=== PATIENT | female | born 1975 | race Caucasian/White ===

== ENCOUNTER → 2018-07-01 | Outpatient (CLI) | payer MEDICAID ==
[2018-07-01 10:43] LABS: HCT 43.5 % (34.0-46.0); HGB 14.4 gm/dL (11.4-16.0); MCH 30.4 pg (25.0-35.0); MCHC 33.2 g/dL (31.0-37.0); MCV 91.5 fL (80.0-100.0); Mean Platelet Volume 7.2; Platelet Count 315 k/uL (150-450); RBC 4.76 m/uL (3.80-5.40); RDW 12.3 % (11.5-15.5)
[2018-07-01 17:39] LABS: Anion Gap 5.8 mmol/L (4.00-12.00); Calcium 9.2 mg/dL (8.7-10.3); Carbon Dioxide 26.2 mmol/L (21.6-31.8)
[2018-07-01 19:09] LABS: Hemoglobin A1C 4.9 % (4.0-6.0)
== END | disposition home or self-care (01) ==
LOC: LABWHC1 10:21
PROVIDERS: ATTEND Family Medicine
DX: K52.89 Other specified noninfective gastroenteritis and colitis (principal); E66.9 Obesity, unspecified
CPT/HCPCS: 36415; 80048; 83036; 84439; 84443; 84450; 84460; 85027

== ENCOUNTER → 2018-12-11 | Outpatient (CLI) | payer MEDICAID ==
--- NOTE | 2018-12-11 14:48 | MM ---
Reason for exam: additional evaluation requested from abnormal screening. Last mammogram was performed 3 years ago. History: Benign MG stereo VAD BX RT of the right breast, June 09, 2015. Reductions of both breasts, 2010. Physical Findings: Nurse Summary: 1cm nodule in the left breast at 2 o'clock (nurse gavi). MG 3D Diag Mammo W/Cad DEB Bilateral CC and MLO view(s) were taken. Prior study comparison: December 15, 2015, right breast MG 3d diag mammo w/cad RT. June 02, 2015, bilateral MG 3d screening mammo w/cad. The breast tissue is heterogeneously dense. This may lower the sensitivity of mammography. Stable benign calcifications. There is no discrete abnormality. These results were verbally communicated with the patient and result sheet given to the patient on 12/11/18. ASSESSMENT: Incomplete: need additional imaging evaluation, BI-RAD 0 RECOMMENDATION: Ultrasound of the left breast. Manage patient on a clinical basis.
--- NOTE | 2018-12-11 14:49 | USB ---
Reason for exam: additional evaluation requested from abnormal screening. History: Benign MG stereo VAD BX RT of the right breast, June 09, 2015. Reductions of both breasts, 2010. US Breast Limited LT Left limited breast ultrasound including focal area of concern, retroareolar and axilla demonstrates a 5 x 3 x 6mm oval, cystic lesion at 2 o'clock and a 8 x 5 x 6mm lobular, cystic lesion at 3 o'clock. These results were verbally communicated with the patient and result sheet given to the patient on 12/11/18. ASSESSMENT: Benign, BI-RAD 2 RECOMMENDATION: Routine screening mammogram of both breasts in 1 year. Manage patient on a clinical basis.
== END | disposition home or self-care (01) ==
LOC: RADMAMWWP 13:33
PROVIDERS: ATTEND Obstetrics & Gynecology
DX: R92.8 Other abnormal and inconclusive findings on diagnostic imaging of breast (principal)
CPT/HCPCS: 77062; 77066

== ENCOUNTER → 2020-06-03 | Outpatient (CLI) | payer MEDICAID ==
--- NOTE | 2020-06-07 14:11 | MM ---
Reason for exam: screening (asymptomatic). Last mammogram was performed 1 year and 6 months ago. History: Benign MG stereo VAD BX RT of the right breast, June 09, 2015. Reductions of both breasts, 2010. Physical Findings: A clinical breast exam by your physician is recommended on an annual basis and results should be correlated with mammographic findings. MG 3D Screening Mammo W/Cad Bilateral CC and MLO view(s) were taken. Prior study comparison: December 11, 2018, bilateral MG 3d diag mammo w/cad DEB. December 15, 2015, right breast MG 3d diag mammo w/cad RT. The breast tissue is heterogeneously dense. This may lower the sensitivity of mammography. Previous mammotome biopsy in the right breast with adjacent fat necrosis calcifications. There is chronic nodularity in the left breast laterally. No significant changes when compared with prior studies. ASSESSMENT: Benign, BI-RAD 2 RECOMMENDATION: Routine screening mammogram of both breasts in 1 year.
== END | disposition home or self-care (01) ==
LOC: RADMAMWWP 15:04
PROVIDERS: ATTEND Obstetrics & Gynecology
DX: Z12.31 Encounter for screening mammogram for malignant neoplasm of breast (principal)
CPT/HCPCS: 77063; 77067

== ENCOUNTER → 2020-08-20 | Outpatient (CLI) | payer MEDICAID ==
--- NOTE | 2020-08-20 10:43 | XR ---
EXAMINATION TYPE: XR finger LT DATE OF EXAM: 08/20/2020 COMPARISON: NONE HISTORY: Pain TECHNIQUE: Three views are submitted. FINDINGS: The osseous structures are intact. The joint spaces are preserved and there is no acute fracture or dislocation. IMPRESSION: 1. No definite acute fracture or dislocation if symptoms persist, follow-up study in 7 to 10 days wo uld be suggested
== END | disposition home or self-care (01) ==
LOC: RADXRMAIN 10:18
PROVIDERS: ATTEND Family Medicine
DX: S63.639A Sprain of interphalangeal joint of unspecified finger, initial encounter (principal)

== ENCOUNTER → 2021-04-19 | Outpatient (CLI) | payer MEDICAID | END | disposition home or self-care (01) | LOC: LABPAT 07:54 | PROVIDERS: ATTEND Surgery Plastic and Reconstructive Surgery | DX: Z01.812 Encounter for preprocedural laboratory examination (principal); Z20.822 Contact with and (suspected) exposure to COVID-19 | CPT/HCPCS: 87635 ==

== ENCOUNTER → 2024-05-07 | Outpatient (CLI) | payer BC ==
[2024-05-08 02:21] LABS: Basophils # (A) 0.07 X 10*3/uL (0.00-0.10); Basophils % (A) 0.9 %; Eosinophils # (A) 0.27 X 10*3/uL (0.04-0.35); Eosinophils % (A) 3.5 %; HCT 44.2 % (37.2-46.3); HGB 14.8 g/dL (12.0-15.0); Lymphocytes # (A) 2.54 X 10*3/uL (0.90-5.00); Lymphocytes % (A) 32.6 %; MCH 31.4 pg (27.0-32.0); MCHC 33.5 g/dL (32.0-37.0); MCV 93.6 FL (80.0-97.0); Mean Platelet Volume 11.1 FL (9.5-12.2); Monocytes # (A) 0.51 X 10*3/uL (0.20-1.00); Monocytes % (A) 6.5 %; NRBC Per 100 WBC 0 X 10*3/uL (0.00-0.01); Neutrophils # (A) 4.38 X 10*3/uL (1.80-7.70); Neutrophils % (A) 56.2 %; Platelet Count 300 X 10*3/uL (140-440); RBC 4.72 X 10*6/uL (4.10-5.20); RDW 12.1 % (11.5-14.5); WBC 7.79 X 10*3/uL (4.50-10.00)
[2024-05-08 03:03] LABS: ALT 27 U/L (8-44); AST 19 U/L (13-35); Albumin 4.4 g/dL (3.8-4.9); Albumin/Globulin Ratio 1.69 Ratio (1.60-3.17); Alkaline Phosphatase 80 U/L (41-126); Blood Urea Nitrogen 10.5 mg/dL (9.0-27.0); Calcium 9.5 mg/dL (8.7-10.3); Chloride 104 mmol/L (96-109); Globulin 2.6 g/dL (1.6-3.3); Glucose 81 mg/dL (70-110); Potassium 4.5 mmol/L (3.5-5.5); Sodium 139 mmol/L (135-145); Total Bilirubin 0.4 mg/dL (0.3-1.2)
[2024-05-08 04:19] LABS: Appearance,Urine Clear (Clear); Bilirubin,Urine Negative (Negative); Blood,Urine Negative (Negative); Color,Urine Yellow (Yellow); Ketones,Urine Negative (Negative); Nitrite,Urine Negative (Negative); PH, Urine 5.5; Specific Gravity,Urine 1.015 (1.001-1.030); Urobilinogen,Urine 0.2 E.U./DL
[2024-05-08 04:30] LABS: Bacteria,Urine 1+ (None Seen)
== END ==
LOC: LABPAT 15:51
PROVIDERS: ATTEND Urology
DX: Z01.818 Encounter for other preprocedural examination (principal)
CPT/HCPCS: 80053; 81001; 85025; 86850; 86900; 86901; 87086

== ENCOUNTER 2024-05-14 05:51 | Day surgery (SDC) | payer BC, MEDICAID ==
--- NOTE | 2024-05-13 10:48 | P.GSHP ---
History of Present Illness H&P Date: 05/13/24 49 yo female with susannah and a cystocele who has failed conservative management. SHe comes for a tot and cystocele repair by Dr Matthews and myself. the risks and complications including the mesh controversy have been explained understood and accepted. - Constitutional Constitutional: Denies chills, Denies fever - EENT Eyes: denies blurred vision, denies pain Ears, nose, mouth and throat: Denies headache, Denies sore throat - Cardiovascular Cardiovascular: Denies chest pain, Denies shortness of breath - Respiratory Respiratory: Denies cough, Denies 7 - Gastrointestinal Gastrointestinal: Denies abdominal pain, Denies diarrhea, Denies nausea, Denies vomiting - Genitourinary (Female) Genitourinary: Denies dysuria, Denies hematuria - Genitourinary (Male) Genitourinary: Denies dysuria, Denies hematuria - Musculoskeletal Musculoskeletal: Denies myalgias - Integumentary Integumentary: Denies pruritus, Denies rash - Neurological Neurological: Denies numbness, Denies weakness - Psychiatric Psychiatric: Denies anxiety, Denies depression - Endocrine Endocrine: Denies fatigue, Denies weight change Past Medical History Additional Past Medical History / Comment(s): urinary incontinence History of Any Multi-Drug Resistant Organisms: None Reported Past Surgical History: Cholecystectomy Past Anesthesia/Blood Transfusion Reactions: No Reported Reaction Additional Past Anesthesia/Blood Transfusion Reaction / Comment(s): pt. adopted Smoking Status: Never smoker Medications and Allergies Home Medications Medication Instructions Recorded Confirmed Type ALPRAZolam [Xanax] 0.5 mg PO DAILY PRN 05/09/24 05/09/24 History Cholestyramine/Aspartame [Questran 0.5 scoop PO DAILY 05/09/24 05/09/24 History Light Powder] Tirzepatide [Zepbound] 7.5 mg SQ MORALES 05/09/24 05/09/24 History Allergies Allergy/AdvReac Type Severity Reaction Status Date / Time No Known Allergies Allergy Verified 12/11/18 14:06 Surgical - Exam - General well developed, well nourished, no distress - Eyes normal ocular movement, no icteric - ENT no hearing loss, no congestion - Neck no masses, trachea midline - Respiratory normal respiratory effort, clear to auscultation - Abdomen Abdomen: soft, non tender, no guarding, no rigid, no rebound - Genitourinary grade 3 cystocele and a hypermobile urethra and susannah - Integumentary no rash, no abnormal pigmentation - Neurologic no disoriented, no combative - Psychiatric oriented to time, oriented to person, oriented to place, speech is normal, memory intact Assessment and Plan Assessment: Impression Susannah and cystocele. Plan: tot with cystoscopy and cystocele repair.
[~2024-05-14 05:51] MED LIST: AMPICILLIN 1,000 MG in SODIUM CHLORIDE 0.9% 50 ML IVPB PRN; GENTAMICIN 110 MG in SODIUM CHLORIDE 0.9% 100 ML IVPB PRN
[2024-05-14] MEDS: ONDANSETRON 4 MG/2 ML VIAL IVP ONE (06:48)
[2024-05-14] MEDS: IV FLUID CONTINUATION 1,000 ML IV ONE (06:48)
[2024-05-14] MEDS: LACTATED RINGERS 1,000 ML IV SCH (06:48)
[2024-05-14] MEDS: DEXAMETHASONE SOD PHOSPHATE 4 MG/ML 1 ML VIAL IV ONE (06:50)
[2024-05-14] MEDS: MIDAZOLAM 2 MG/2 ML VIAL IV ONE (06:58)
[2024-05-14] MEDS ORDERED: PROPOFOL 10 MG/ML 20 ML VIAL IV ONE (07:58)
[2024-05-14] MEDS ORDERED: fentaNYL (PF) 50 MCG/ML 2 ML AMP ONE (07:58)
[2024-05-14] MEDS ORDERED: SUCCINYLCHOLINE CHLORIDE 200 MG/10 ML VIAL IV ONE (07:58)
[2024-05-14] MEDS ORDERED: MIDAZOLAM 2 MG/2 ML VIAL ONE (07:58)
[2024-05-14] MEDS ORDERED: LIDOCAINE 1% INJ 10MG/ML (20 ML MDV) ONE (07:58)
[2024-05-14] MEDS: VASOPRESSIN 20 UNIT/ML 1 ML VIAL SQ ONE (08:44)
[2024-05-14] MEDS: GENTAMICIN 80 MG in SODIUM CHLORIDE 0.9% 500 ML 500 ML IRRIGATION ONE (08:50)
[2024-05-14] MEDS ORDERED: ALPRAZolam 0.5 MG TAB PO PRN (09:00)
--- NOTE | 2024-05-14 09:07 | P.HPOB ---
History of Present Illness H&P Date: 05/14/24 Chief Complaint: Stress urinary incontinence The patient is a 49-year-old multiparous patient who presented to Dr. Forrester with complaints of stress urinary incontinence. His evaluation confirmed that finding and the indication for Monarc suburethral sling. During his evaluation he discovered a cystocele which was larger than he felt comfortable repairing on his own and referred her to me for evaluation and comanagement of the surgery. She was found to have a grade 2+ cystocele present. As a result, we are planning Co. surgeries with anterior colporrhaphy followed by Dr. Aaron performing a Monarc suburethral sling. Obstetrical history: Multiparous patient with normal vaginal deliveries. Gynecologic history: Unremarkable with no history of any infections. Review of Systems Review of systems is confined to history of present illness. Past Medical History Additional Past Medical History / Comment(s): urinary incontinence History of Any Multi-Drug Resistant Organisms: None Reported Past Surgical History: Cholecystectomy Past Anesthesia/Blood Transfusion Reactions: No Reported Reaction Additional Past Anesthesia/Blood Transfusion Reaction / Comment(s): pt. adopted Smoking Status: Never smoker Medications and Allergies Home Medications Medication Instructions Recorded Confirmed Type ALPRAZolam [Xanax] 0.5 mg PO DAILY PRN 05/09/24 05/14/24 History Cholestyramine/Aspartame [Questran 0.5 scoop PO DAILY 05/09/24 05/14/24 History Light Powder] Tirzepatide [Zepbound] 7.5 mg SQ MORALES 05/09/24 05/14/24 History Allergies Allergy/AdvReac Type Severity Reaction Status Date / Time No Known Allergies Allergy Verified 05/14/24 06:22 Exam Vital Signs Temp Pulse Resp BP Pulse Ox 05/14/24 07:05 80 16 113/68 97 05/14/24 06:34 97.9 F 77 18 108/70 98 Intake and Output 05/13/24 05/14/24 05/14/24 22:59 06:59 14:59 Intake Total 100 401 Output Total 10 Balance 100 391 Intake: IV 100 401 Output: Estimated Blood Loss 10 Other: Weight 92.4 kg In general, this is a well-developed, well-nourished white female in no acute distress. Her heart has a regular rhythm and rate without murmur. Her lungs clear to auscultation bilaterally in all marks. Her abdomen is nondistended, has normal active bowel sounds, soft, nontender, and without any palpable masses. Her extremities are without any cyanosis, clubbing, or edema and are nontender to palpation bilaterally. Pelvic examination demonstrates normal external genitalia and BUS with normal vaginal mucosa and cervix. There is a grade 2+ cystocele present. The uterus is approximately 4 to 5 weeks in size, midplane, mobile, nontender, normal shape. The adnexa are normal and nontender without mass bilaterally. Assessment and Plan (1) KANA (stress urinary incontinence, female) Current Visit: Yes Status: Acute Code(s): N39.3 - STRESS INCONTINENCE (FEMALE) (MALE) SNOMED Code(s): 96520418 (2) Cystocele Current Visit: Yes Status: Acute Code(s): GQH5478 - SNOMED Code(s): 576214333 Plan: The patient has been brought to the operating room for anterior colporrhaphy and Monarc suburethral sling. The risks and complications of each procedure have been independently discussed by myself and Dr. Forrester. The patient has understood and agreed to proceed.
--- NOTE | 2024-05-14 09:07 | P.OP ---
Date of Procedure: 05/14/24 Preoperative Diagnosis: cystocele, stress urinary incontinence Postoperative Diagnosis: same Procedure(s) Performed: anterior repair, trans-obturator tape, cystoscopy Anesthesia: DUSTY Surgeon: Xiang Forrester Estimated Blood Loss (ml): 50 Pathology: none sent Condition: stable Disposition: PACU Indications for Procedure: the patient is 49. She has a grade 3 cystocele and stress urinary incontinence. She comes for an anterior repair by Dr. Matthews, and a bladder neck suspensi on (trans-obturator tape) myself. Description of Procedure: patient brought to the operating suite. Given a general anesthetic. Placed lithotomy position with a sterile prep and drape. Dr. Matthews proceeds with thecystocele repair. After this is done I entered the procedure. Make 2 incisions in the inguinal crease at the level clitoris. I passed the trans-obturator tape introducers through the incisions around the issue pubic ramus into the vaginal space bilaterally. The urine remains clear. Cystoscopy proved that there is no evidence of introducer and the bladder. I then attached the trans-obturator grafted introducers and pull it back such that it sits in the mid urethra nicely.I then removed the redundant sheathing. I closed the vaginal space with a running 2-0 Vicryl. I excised redundant graft at the inguinal incisions and closed with 4-0 Monocryl. A vaginal pack is place. Blood loss for my portion of the procedure is about 25 mL. The patient tolerated procedure well. The urine remains clear. She is awakened and returned recovery room in good condition.
--- NOTE | 2024-05-14 09:11 | P.OP ---
Date of Procedure: 05/14/24 Preoperative Diagnosis: #1. Stress urinary incontinence #2. Grade 2+ cystocele, incidental Postoperative Diagnosis: Same Procedure(s) Performed: #1. Anterior colporrhaphy #2. Monarc suburethral sling (Mitzy) Anesthesia: DUSTY Surgeon: Arthur Matthews Ecommerce Marketing Manager #1: Xiang Forrester Estimated Blood Loss (ml): 20 Pathology: none sent Condition: stable Disposition: other (Remains in OR for the second portion of procedure) Operative Findings: Pelvic examination confirmed the preoperative findings of a grade 2+ cystocele present. Description of Procedure: The patient was prepped and draped in usual fashion after general endotracheal anesthesia was administered by the anesthesiologist. A weighted speculum was placed and the bladder drained of clear denise urine. The cervix was grasped with a single-tooth tenaculum and the cervical vaginal mucosa grasped with 2 Allis clamps at the anterior junction lateral to the cervix on each side. The cervical vaginal and vesicovaginal mucosa was infused with diluted vasopressin solution. The area between the 2 Allis clamps was then opened with a scalpel and the Allises replaced to the midline of the incision. The vesicovaginal mucosa was undermined and divided in the midline with the Metzenbaum scissors to the urethral apex. The overlying mucosa was sharply and bluntly dissected from the underlying tissues. After adequate reflection had been carried out, serial Fe plication stitches were placed using 2-0 PDS from near the urethral apex to the cervix. After what appeared to be an excellent reduction of the cystocele was carried out, the intervening redundant vaginal mucosa was trimmed with a Metzenbaum scissors on each side and discarded. The case was then handed to for completion of the Monarc suburethral sling. Estimated blood loss for the my portion of the case was approximately 20 mL. Clear urine was noted. There were no complications. All sponge and instrument counts will remain uncounted until the end of the case.
[2024-05-14] MEDS: HYDROmorphone 0.5 MG/0.5 ML SYRINGE IVP PRN (09:22)
[2024-05-14] MEDS: DEXTROSE 5%-0.45% NACL 1,000 ML IV SCH (11:03)
[2024-05-14] MEDS: KETOROLAC 15 MG/ML 1 ML VIAL IVP PRN (11:59)
[2024-05-14] MEDS: ACETAMINOPHEN TAB 500 MG TAB PO PRN (20:27)
[2024-05-15] MEDS: IBUPROFEN 800 MG TAB PO PRN (00:33)
--- NOTE | 2024-05-15 08:00 | P.DS ---
Providers Attending physician: Arthur Matthews Primary care physician: [facility] Course: The patient underwent a cystocele repair[ dr matthews] and a tot[ dr qureshi] yeserday for a cystocele and vitor. SHe did well post op The packing and cath were removed today She feels well She will be d/c home in care of her family. Limited activity She will fu with both doctors in about 1 week Patient Condition at Discharge: Good Plan - Discharge Summary Discharge Rx Participant: Yes New Discharge Prescriptions: No Action Cholestyramine/Aspartame [Questran Light Powder] 0.5 scoop PO DAILY ALPRAZolam [Xanax] 0.5 mg PO DAILY PRN PRN Reason: Anxiety Tirzepatide [Zepbound] 7.5 mg SQ MORALES Discharge Medication List ALPRAZolam [Xanax] 0.5 mg PO DAILY PRN 05/09/24 [History] Cholestyramine/Aspartame [Questran Light Powder] 0.5 scoop PO DAILY 05/09/24 [History] Tirzepatide [Zepbound] 7.5 mg SQ MORALES 05/09/24 [History] Follow up Appointment(s)/Referral(s): Xiang Qureshi MD [STAFF PHYSICIAN] - 1 Week Arthur Matthews MD [STAFF PHYSICIAN] - 1 Week Discharge Disposition: HOME SELF-CARE
[2024-05-15 10:24] VITALS: BP 91/54; PULSE 63; RESP 16; TEMP 97.8
== END 2024-05-15 10:30 | disposition home or self-care (01) ==
LOC: OR 05:51 → 4FBP 09:02 → OR 05-15 10:30
PROVIDERS: ATTEND Obstetrics & Gynecology
DX: N39.3 Stress incontinence (female) (male) (principal); N81.10 Cystocele, unspecified; Z79.85 Long-term (current) use of injectable non-insulin antidiabetic drugs
CPT/HCPCS: 81025

== ENCOUNTER → 2024-11-11 | Outpatient (CLI) | payer BC ==
--- NOTE | 2024-11-11 11:33 | MM ---
Reason for Exam: Screening (asymptomatic). Last mammogram was performed 4 year(s) and 6 month(s) ago. Patient History: Menarche at age 10. First Full-Term at age 24. Perimenopausal. Patient has history of breast feeding. 2010, Bilateral Reduction. 06/09/2015, Benign Core Biopsy on the right side. Last menstrual period: 09/16/2024 Risk Values: Katrina 5 year model risk: 1.3%. NCI Lifetime model risk: 11.4%. Prior Study Comparison: 06/02/2015 Bilateral Screening Mammogram, [facility]. 12/15/2015 Right Diagnostic Mammogram, [facility]. 12/11/2018 Bilateral Diagnostic Mammogram, [facility]. 06/03/2020 Bilateral Screening Mammogram, [facility]. Tissue Density: The breasts are heterogeneously dense, which may obscure small masses. Findings: Analyzed By CAD. There is increased nodularity upper outer and upper central right breast. Additional views are recommended. Benign calcifications are present in right breast. No suspicious microcalcifications are evident. Overall Assessment: Incomplete: need additional imaging evaluation, BI-RAD 0 Management: Diagnostic Mammogram of the left breast. . Patient should continue monthly self-breast exams. A clinical breast exam by your physician is recommended on an annual basis. This exam should not preclude additional follow-up of suspicious palpable abnormalities. Note on Katrina scores and lifetime risk: 1. A Katrina score greater than 3% is considered moderate risk. If this is the case, consider specialist referral to assess eligibility for a risk reducing agent. 2. If overall lifetime risk for the development of breast cancer is 20% or higher, the patient may qualify for future screening with alternating mammogram and breast MRI. [facility], , 11/11/2024 11:30 AM. Electronically signed and approved by: Dru Peña M.D. Radiologis
== END | disposition home or self-care (01) ==
LOC: RADMAMWWP 10:55
PROVIDERS: ATTEND Obstetrics & Gynecology
DX: Z12.31 Encounter for screening mammogram for malignant neoplasm of breast (principal); R92.333 Mammographic heterogeneous density, bilateral breasts; R92.1 Mammographic calcification found on diagnostic imaging of breast
CPT/HCPCS: 77067

== ENCOUNTER → 2024-11-18 | Outpatient (CLI) | payer BC ==
--- NOTE | 2024-11-18 11:45 | MM ---
Reason for Exam: Additional evaluation requested from abnormal screening. Last screening mammogram was performed less than 1 month ago. Patient History: Menarche at age 10. First Full-Term at age 24. Perimenopausal. Patient has history of breast feeding. 2010, Bilateral Reduction. 06/09/2015, Benign Core Biopsy on the right side. Risk Values: Katrina 5 year model risk: 1.3%. NCI Lifetime model risk: 11.4%. Prior Study Comparison: 12/11/2018 Bilateral Diagnostic Mammogram, [facility]. 06/03/2020 Bilateral Screening Mammogram, [facility]. 11/11/2024 Bilateral MG screening mammo w CAD, [facility]. Tissue Density: Left: The breasts are heterogeneously dense, which may obscure small masses. Findings: Analyzed By CAD. 9 mm nodularity in the central outer left breast becomes less pronounced and partially disperses on initial views with an appearance similar to the 2019 exam. Findings may represent an underlying benign cyst. Given the appearance on the recent screening, precautionary 6 month follow-up is recommended. Overall Assessment: Probably benign, BI-RAD 3 Management: Diagnostic Mammogram of the left breast in 6 months. Results were given to the patient verbally at the time of exam. Patient should continue monthly self-breast exams. A clinical breast exam by your physician is recommended on an annual basis. This exam should not preclude additional follow-up of suspicious palpable abnormalities. Note on Katrina scores and lifetime risk: 1. A Katrina score greater than 3% is considered moderate risk. If this is the case, consider specialist referral to assess eligibility for a risk reducing agent. 2. If overall lifetime risk for the development of breast cancer is 20% or higher, the patient may qualify for future screening with alternating mammogram and breast MRI. [facility], , 11/18/2024 11:42 AM. Electronically signed and approved by: Lala Luna M.D. Radiologist
== END | disposition home or self-care (01) ==
LOC: RADMAMWWP 10:28
PROVIDERS: ATTEND Obstetrics & Gynecology
DX: R92.8 Other abnormal and inconclusive findings on diagnostic imaging of breast (principal); R92.332 Mammographic heterogeneous density, left breast
CPT/HCPCS: 77061; 77065